=== PATIENT | female | born 1950 | race Caucasian/White ===

== ENCOUNTER 2017-02-09 13:36 | Emergency (ER) | payer MEDICARE ==
[2017-02-09 13:55] VITALS: BP 100/63
--- NOTE | 2017-02-09 14:10 | ERNOTE ---
Date of Service: 02/09/17 Time Seen by Provider: 02/09/17 14:00 Stated Complaint: URI/NAUSEA/HEADACHE Presenting Symptoms:: cough Source: patient Exam Limitations: no limitations Immunizations: IMMUNIZATION HX Immunizations Up to Date Yes History of Influenza Vaccine Yes Hx Pneumococcal Vaccination Yes Allergies/Adverse Reactions: Allergies acetaminophen [From Lortab] Allergy (Verified 02/09/17 13:56) fluphenazine Allergy (Verified 02/09/17 13:56) hydrocodone [From Lortab] Allergy (Verified 02/09/17 13:56) Home Medications: HOME MEDICATIONS SUMAtriptan SUCCINATE [Sumatriptan Succinate] 100 mg PO PRN PRN 02/09/17 [Last Taken Unknown] - History of Present Ilness Narrative: 2 days ago, developed a cough, malaise and hurting all over. Temp probably about 100 at home, but she normally runs about 96. She got a thermometer today. People in her community have Influenza A. She has a headache, but has sumatriptan reponsive headaches every 10-14 days. Timing: constant Severity: mild, moderate Frequency/Possible Cause: Reports: unknown cause Modifying Factors - Improves: Reports: other - over the counter medication and sumatriptan help Modifying Factors - Worsens: Reports: activity, coughing Associated Symptoms: Reports: headache, sore throat, muscle aches, fever/chills Prior Treatment: Denies: recently seen, currently on antibiotics Review of Systems - Review of Systems Constitutional: Present: fever, chills, malaise EYE: Present: no symptoms reported ENT: Present: nose congestion, nasal drainage, sore throat Respiratory: Present: shortness of breath, cough Cardiology: Present: no symptoms reported Gastrointestinal/Abdominal: Present: no symptoms reported Genitourinary: Present: no symptoms reported Musculoskeletal: Present: muscle pain, joint pain Skin: Present: no symptoms reported Neurological: Present: headache Endocrine: Present: no symptoms reported Hematologic/Lymphatic: Present: no symptoms reported Psych: Present: no symptoms reported All Other Systems: All systems neg except as marked - Patient's Past Medical History Patient History - Medical: Depression, Migraines Patient History - Cardiac/Respiratory: No pertinent hx Patient History - Cancer: No Hx of Cancer Patient History - Surgical Procedures: T & A Patient History - Other: None LMP (females 10-50): Menopausal - Social History Living Situations: spouse Abuse History: No History of abuse Psych History: No pertinent hx Smoking Status: Never smoker Drug Use: none - Immunizations Immunizations Up to Date: Yes Hx Pneumococcal Vaccination: Yes History of Influenza Vaccine: Yes Physical Exam - Physical Exam General Appearance: Present: wd/wn, alert, no apparent distress Eye Exam: Normal inspection: bilateral, PERRL: bilateral, EOMI: bilateral Ears, Nose, Throat: Present: normal ENT inspection, nasal congestion, pharyngeal erythema. Absent: abnormal TM (R), abnormal TM (L) Neck: Present: normal inspection, nontender. Absent: lymphadenopathy (R), lymphadenopathy (L) Respiratory: Present: no respiratory distress, normal breath sounds Cardiovascular/Chest: Present: regular rate, rhythm, no murmur Gastrointestinal/Abdominal: Present: normal bowel sounds, nontender, nondistended, soft, no organomegaly Back Exam: Present: normal inspection Extremity Exam: Present: normal inspection, no edema Neurological Exam: Present: alert, oriented, normal mood/affect Skin Exam: Present: normal color, warm/dry ED Progress - Results and Orders Patient's Lab Results:: I have reviewed the patient's lab results. - Vital Signs Patient's Vital Signs:: I have reviewed the patient's vital signs. Vital Signs: Vital Signs 02/09/17 13:44 Temperature 37.0 C Pulse Rate 78 Respiratory 14 Rate Blood Pressure 100/63 O2 Sat by Pulse 99 Oximetry - Progress/Reassessment Chief Complaint: Upper Respiratory Symptoms Departure - Departure Clinical Impression: Viral syndrome Disposition: Home self-care Condition: Good Instructions: Viral Respiratory Infection, [id number] Additional Instructions: Meds to help you feel better. Rest. Lots of fluids. See your health care provider sometime next week.
== END 2017-02-09 14:59 | disposition home or self-care (01) ==
LOC: ER 13:36
DX: R05 Cough (principal); B34.9 Viral infection, unspecified